=== PATIENT | male | born 1935 | race Caucasian/White ===

== ENCOUNTER 2023-10-22 19:31 | Inpatient (IN) | payer MEDICARE, OTHER, SELFPAY ==
--- NOTE | ~2023-10-22 | CT_ITS ---
EXAMINATION: CT abdomen pelvis wo con DATE: 10/22/2023 21:53 INDICATION: generalized abdominal pain TECHNIQUE: Computed tomography (CT) of the abdomen and pelvis was performed without intravenous contr ast. Automated exposure control and iterative reconstruction technique were employed. The dose-length product was 260.19 mGy-cm. COMPARISON: None. FINDINGS: Exam limited by motion artifact, particularly in the upper abdomen, and noncontrast technique. Lower thorax: Small left lower lobe air cyst. 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 Right bas ilar scar/atelectasis. Aortic valve and coronary artery calcification. Liver: Normal. Biliary/Gallbladder: Gallbladder is absent. No bile duct dilation. Pancreas: Pancreatic atrophy Spleen: Normal. Adrenals:No mass. Kidneys: No suspicious mass, obstructing stone, or hydronephrosis. GI tract: Mildly dilated ascending and transverse colon, without a specific transition point. The col on is fluid-filled. No small dilation. Normal appendix. Diverticulosis without diverticulitis. Mesentery/Peritoneum: No ascites, mass, or free air. Retroperitoneum: No mass. Atherosclerotic abdominal aortic and/or arterial calcifications. Pelvis: Pelvic organs are within normal limits. Soft Tissues: Soft tissues and body wall unremarkable. Bones: No acute osseous finding. IMPRESSION: Fluid-filled colon as can be seen with diarrheal illness. Dilated proximal large bowel, without point, may reflect chronic dilation or ileus. Early/partial obs truction not excluded. Reviewed, dictated and finalized at location K. USION OPERATOR IMPRESSION: Fluid-filled colon as can be seen with diarrheal illness. Dilated proximal large bowel, without point, may reflect chronic dilation or il eus. Early/partial obstruction not excluded.
--- NOTE | ~2023-10-22 | XR_ITS ---
EXAMINATION: XR abdomen/kub 1V INDICATION: Ileus TECHNIQUE: Supine view of the abdomen is obtained. COMPARISON: CT from yesterday FINDINGS: There is moderate volume of gas in the colon without focal colonic distention. No free intr aperitoneal gas is identified. There is severe lumbar spondylosis. IMPRESSION: 1. Nonobstructive bowel gas pattern. Reviewed, dictated and finalized at location A. CREW SUPPORT WORKER
[2023-10-22 19:32] VITALS: BP 132/78; PULSE 80; RESP 20; TEMP 36.7; O2SAT 100
[2023-10-22 19:39] VITALS: BP 132/78; PULSE 81; RESP 20; TEMP 36.7; O2SAT 100
[2023-10-22] MEDS: SODIUM CHLORIDE 0.9% IV 1,000 ML 999 ML IV CONT (20:14)
[2023-10-22] MEDS: ONDANSETRON INJ 4 MG/2 ML VIAL IV PUSH (20:15)
[2023-10-22 20:26] LABS: Basophils Absolute Auto 0.1 K/mm3 (0.0-0.1); Basophils Percent Auto 0.7 % (0.2-1.2); Eosinophils Absolute Auto 0.2 K/mm3 (0-0.3); Eosinophils Percent Auto 2.8 % (0-4.4); Hematocrit 40.7 % (42.0-52.0); Hemoglobin 13.1 g/dL (14.0-18.0); Immature Granulocyte Absolute 0.02 K/mm3 (0.00-0.031); Immature Granulocyte Percent A 0.2 % (0-0.5); Lymphocytes Absolute Auto 2.22 K/mm3 (0.9-3.2); Lymphocytes Percent Auto 25.7 % (18.3-44.2); Mean Corpuscular HGB Conc 32.2 g/dl (32-36); Mean Corpuscular Hemoglobin 29.2 pg (26-34); Mean Corpuscular Volume 90.8 fl (80-100); Monocytes Absolute Auto 0.7 K/mm3 (0.1-0.6); Monocytes Percent Auto 7.6 % (2.6-8.5); Neutrophils Absolute Auto 5.4 K/mm3 (1.3-6.7); Platelet Count Result 269 k/mm3 (150-375); Red Blood Count 4.48 M/mm3 (4.6-6.20); Red Cell Distribution Width 12.7 % (11.5-14.5); White Blood Count 8.6 K/mm3 (4.5-10.0)
[2023-10-22 20:36] LABS: Lactic Acid Reflex 2.1 mmol/L (0.7-2.0)
[2023-10-22 20:37] LABS: Alanine Aminotransferase 29 U/L (6-50); Albumin Level 4.3 g/dL (3.5-5.1); Alkaline Phosphatase 60 U/L (38-126); Anion Gap 8 mmol/L (8-16); Aspartate Amino Transferase 29 U/L (17-59); Bilirubin,Total 0.7 mg/dL (0.2-1.3); Blood Urea Nitrogen 38 mg/dL (9-20); Carbon Dioxide 28 mmol/L (22-30); Chloride 102 mmol/L (98-107); Estimated CRCL calculation 32 ml/min; Estimated Glomerular Filt Rate > 60; Glucose 270 mg/dL (65-110); Lipase 79 U/L (23-300); Potassium 3.9 mmol/L (3.4-5.0); Sodium 138 mmol/L (137-145)
[2023-10-22 20:46] LABS: INR 1.1; Partial Thromboplastin Time 27.8 SECONDS (22.3-36.8); Prothrombin Time 14.7 Seconds (11.1-14.7)
--- NOTE | 2023-10-22 20:47 | ED.GENADULT ---
HPI - General Adult General Chief complaint: Abdominal Pain Stated complaint: ABDOMINAL PAIN, N/V, DECREASED PO INTAKE Time Seen by Provider: 10/22/23 19:43 History of Present Illness HPI narrative: patient is a 88-year-old gentleman who presents emergency department with chief complaint of abdominal pain. Patient reports that he has been having constipation for the last several days had some nausea and vomiting and reports that he has pain and fullness in his lower quadrants of his abdomen. The patient denies fever reports that he has had several surgeries on his abdomen in the past Related Data Allergies Allergy/AdvReac Type Severity Reaction Status Date / Time ezetimibe [From Zetia] Allergy Unknown Verified 10/22/23 19:49 Pwyagdy-UBI-OjJ Reductase Allergy Unknown Verified 10/22/23 19:49 Inhibitor Review of Systems Review of Systems: A 10 system review of systems was completed on the patient and is negative except for what is stated in the HPI. Nursing and ancillary documentation was reviewed. [facility] Social History Social History Alcohol intake: never Exam Narrative: GENERAL: Well-appearing, well-nourished, and in no acute distress. HEAD: Normocephalic, atraumatic. EYES: PERRLA and EOMI. ENT: Nares clear, no rhinorrhea or epistaxis. Mucous membranes moist. NECK: Supple. CHEST: Clear to auscultation. No respiratory distress. HEART: Regular rate and rhythm. No murmur heard. Normal peripheral pulses. ABDOMEN: Soft, tenderness to palpation in the lower quadrants the abdomen, nondistended, normal active bowel sounds. EXTREMITIES: Normal range of motion. No edema. SKIN: Warm, dry, no rash. NEURO: No focal deficits. Alert and oriented x3. PSYCH: Normal mood and affect. Course Vital Signs Vital signs: Vital Signs Temperature 36.7 C 10/22/23 19:32 Pulse Rate 80 10/22/23 19:32 Respiratory Rate 20 10/22/23 19:32 Blood Pressure 132/78 10/22/23 19:32 Pulse Oximetry 100 10/22/23 19:32 Oxygen Delivery Room Air 10/22/23 19:32 Temperature 36.7 C 10/22/23 19:39 Pulse Rate 81 10/22/23 19:39 Respiratory Rate 20 10/22/23 19:39 Blood Pressure 132/78 10/22/23 19:39 Pulse Oximetry 100 10/22/23 19:39 Oxygen Delivery Room Air 10/22/23 19:32 Medical Decision Making MDM Narrative Medical decision making narrative: differential diagnosis includes small-bowel obstruction, colitis, diverticulitis, partial small bowel obstruction, ileus laboratory studies were obtained showed a normal CBC CMP was within normal limits lactate was slightly elevated 2.1 CT scan of the abdomen pelvis showed:Fluid-filled colon as can be seen with diarrheal illness. Dilated proximal large bowel, without point, may reflect chronic dilation or ileus. Early/partial obstruction not excluded. Vital Signs Vital Signs: Vital Signs Temperature 36.7 C 10/22/23 19:32 Pulse Rate 80 10/22/23 19:32 Respiratory Rate 20 10/22/23 19:32 Blood Pressure 132/78 10/22/23 19:32 Pulse Oximetry 100 10/22/23 19:32 Oxygen Delivery Room Air 10/22/23 19:32 Temperature 36.7 C 10/22/23 19:39 Pulse Rate 81 10/22/23 19:39 Respiratory Rate 20 10/22/23 19:39 Blood Pressure 132/78 10/22/23 19:39 Pulse Oximetry 100 10/22/23 19:39 Oxygen Delivery Room Air 10/22/23 19:32 Lab Data 10/22/23 20:21 10/22/23 20:21 Labs: Lab Results 10/22/23 Range/Units 20:21 WBC 8.6 (4.5-10.0) K/mm3 RBC 4.48 L (4.6-6.20) M/mm3 Hgb 13.1 L (14.0-18.0) g/dL Hct 40.7 L (42.0-52.0) % MCV 90.8 (80-100) fl MCH 29.2 (26-34) pg MCHC 32.2 (32-36) g/dl RDW 12.7 (11.5-14.5) % Plt Count 269 (150-375) k/mm3 MPV 11.0 H (7.4-10.4) fl Immature Gran % (Auto) 0.2 (0-0.5) % Neut % (Auto) 63.0 (45.5-73.1) % Lymph % (Auto) 25.7 (18.3-44.2) % [place] % (Auto) 7.6 (2.6
[2023-10-22 23:23] LABS: Reflex Lactic Acid Yes or No Add Lactic
[2023-10-23 01:46] LABS: Lactic Acid 1.3 mmol/L (0.7-2.0)
--- NOTE | 2023-10-23 02:19 | PC.NURSE ---
This patient, Daquan Foley, was admitted to 3 [facility] Surg Room 324-02. Patient/family oriented to hospital policies and general routines including ID bracelet, bed and alarms, visiting hours, pain management, procedures, bathroom and other care routines, personal items, smoking policy, room service/diet, and visiting hours. Information on how to activate the Rapid Response Team has been discussed. Patient/Family are encouraged to report perceived risks to care and to ask questions if they do not understand what they are told or what they should do.
[2023-10-23 02:22] VITALS: BP 119/68; PULSE 66; RESP 18; TEMP 35.8; O2SAT 100
[2023-10-23 02:36] VITALS: BMI 14.0
--- NOTE | 2023-10-23 02:47 | PC.NURSE ---
Brooks Quiñones [facility] [phone]
--- NOTE | 2023-10-23 03:34 | PC.NURSE ---
informed DO Hopen that patient daughter is requesting sleep aide for patient, patient does not take sleep aide at [facility].
[2023-10-23] MEDS: SODIUM CHLORIDE 0.9% IV 1,000 ML 125 ML IV CONT ×2 (03:56→12:09)
--- NOTE | 2023-10-23 05:48 | PC.NURSE ---
patient daughter requested on AM vitals to promote sleep for patient
--- NOTE | 2023-10-23 06:08 | PM.IMHP ---
H&P: HPI History of Present Illness Date/Time: 10/23/23 04:30 Chief Complaint: Nausea, vomiting, abdominal pain and constipation. Narrative: 88-year-old male with a past medical history of dementia, chronic hearing loss, irritable bowel syndrome, cholecystectomy and diabetes who presented to the ER from [facility] due to abdominal pain nausea vomiting. The patient has been constipated for about a week. The daughter attributes this in part due to the patient having very little appetite and stating that he does not like the food at the [facility]. Patient has had progressive weight for a few years but more acute weight loss over the last couple of months. He had been complaining of generalized abdominal pain. He has difficulty telling me severity is obtaining the history is limited due to patient's hearing loss and dementia. I had trouble obtaining orientation questions due to the patient's hearing. She reports that is not uncommon for the patient to have episodes of constipation and hard stools followed by diarrhea in rotational pattern. They brought the patient and this evening when he began having several episodes of vomiting. Reportedly emesis was nonbilious and non bloody. Patient's daughter reports that since the patient had movements home in February and then transition the fpc in April he has had a steady decline. She reports that he usually has difficulty with short-term memory issues but can not remember distant history. He has been slowly losing weight over the last several years but has had marked increase in weight loss over the last several months. She has noticed a loss in interest and activities of living. He does not like to participate in events at the fpc she thinks this is due to his hearing loss. He and his he most their meals in the room. He has become more isolated. The patient does not eat much. Patient will occasionally drink some Ensure. Most of the patient's history was obtained from the daughter's/POA report. No past medical records available for review home medication external reconciliation was reviewed from pharmacy. Review of Systems Review of Systems: Review of systems limited due to patient's hearing loss and dementia. [facility] Past Medical History Medical History (Updated 10/23/23 @ 06:54 by Shanel Nettles DO) Allergic rhinitis Dementia Depression Irritable bowel syndrome Presbycusis of both ears Type 2 diabetes mellitus Surgical History Surgical History (Updated 10/23/23 @ 06:22 by Shanel Nettles DO) History of laparoscopic cholecystectomy Social History Social History (Updated 10/23/23 @ 06:38 by Shanel Nettles DO) Social History: The patient is moved to [facility] in April 2023. He worked for the [employer] prior to retiring. The patient used to smoke a pipe. He then transition to chewing tobacco and uses about a can a day. He used to occasionally drink a beverage but only in moderation and has not done so in many years. He and his had a son and a daughter. Her daughter is the healthcare power of motor pool clerk. Code status is DNR/DNI. Smoking status: Former smoker Tobacco type: pipe Smokeless tobacco user: chewing tobacco Alcohol intake: never Substance use: never Substance use type: does not use Spiritual care concerns: No Meds Home Medications and Allergies Home Medications Medication Instructions Recorded Confirmed Type acetaminophen 325 mg tablet 325 mg PO Q4H PRN Mild Pain (Scale 10/23/23 10/23/23 History (Tylenol) Score 1-4) albuterol sulfate 90 mcg/actuation 2 puff inhalation PRN PRN 10/23/23 10/23/23 History aerosol inhaler Shortness Of Breath Or Wheezing docusate sodium 100 mg capsule 100 mg PO BID 10/23/23 10/23/23 History (Colace) fluticasone propionate 50 2 spray intranasal BID 10/23/23 10/23/23 History mcg/actuation nasal
[2023-10-23 07:51] LABS: Glucose Point of Care 113 mg/dl (65-105)
[2023-10-23] MEDS: metFORMIN HCL 500 MG TABLET PO (08:22)
[2023-10-23] MEDS: DOCUSATE SODIUM 100 MG CAPSULE PO ×2 (08:22→20:14)
[2023-10-23] MEDS: glipiZIDE 5 MG TABLET PO (08:22)
[2023-10-23] MEDS: FLUTICASONE PROPIONATE 0.05% NA SPR 16 GM BTL (*BKC) 2 SPRAY NASAL ×2 (08:23→20:25)
[2023-10-23] MEDS: IPRATROPIUM NASAL SPRAY 0.06% 15 ML BOTTLE 2 SPRAY NASAL ×2 (08:23→20:24)
[2023-10-23 08:51] LABS: Basophils Absolute Auto 0.1 K/mm3 (0.0-0.1); Basophils Percent Auto 0.8 % (0.2-1.2); Eosinophils Absolute Auto 0.5 K/mm3 (0-0.3); Eosinophils Percent Auto 5.8 % (0-4.4); Hematocrit 38.1 % (42.0-52.0); Hemoglobin 11.9 g/dL (14.0-18.0); Immature Granulocyte Absolute 0.05 K/mm3 (0.00-0.031); Immature Granulocyte Percent A 0.6 % (0-0.5); Lymphocytes Absolute Auto 2.81 K/mm3 (0.9-3.2); Lymphocytes Percent Auto 32.6 % (18.3-44.2); Mean Corpuscular HGB Conc 31.2 g/dl (32-36); Mean Corpuscular Volume 92.7 fl (80-100); Mean Platelet Volume 10.8 fl (7.4-10.4); Monocytes Absolute Auto 0.7 K/mm3 (0.1-0.6); Monocytes Percent Auto 8.2 % (2.6-8.5); Neutrophils Absolute Auto 4.5 K/mm3 (1.3-6.7); Platelet Count Result 242 k/mm3 (150-375); Red Blood Count 4.11 M/mm3 (4.6-6.20); Red Cell Distribution Width 12.8 % (11.5-14.5); White Blood Count 8.6 K/mm3 (4.5-10.0)
[2023-10-23 09:02] LABS: Anion Gap 4 mmol/L (8-16); Blood Urea Nitrogen 31 mg/dL (9-20); Calcium 9.1 mg/dL (8.4-10.2); Carbon Dioxide 29 mmol/L (22-30); Chloride 105 mmol/L (98-107); Estimated CRCL calculation 35 ml/min; Estimated Glomerular Filt Rate > 60; Glucose 115 mg/dL (65-110); Potassium 3.5 mmol/L (3.4-5.0); Sodium 138 mmol/L (137-145)
[2023-10-23 10:17] LABS: Appearance Urine Clear (Clear); Bacteria Urine None Seen /hpf; Bilirubin Urine Negative (Negative); Blood Urine 2+ (Negative); Color Urine Dark Yellow (Yellow); Glucose Urine UA 1+ mg/dL (Negative); Ketones Urine Trace mg/dL (Negative); Leukocyte Esterase Ur Negative LEU/UL (Negative); Nitrate Urine Negative (Negative); Non Pathogenic Casts 0-2; Protein Urine 1+ mg/dL (Negative); RBC Urine 21-50 /hpf (0-2); Squamous Epithelial Cell Urine None seen /hpf (Few); Urobilinogen Urine 0.2 mg/dL (<2.0)
[2023-10-23 10:18] LABS: Add Urine Microscopic? YES
[2023-10-23 11:53] LABS: Glucose Point of Care 84 mg/dl (65-105)
[2023-10-23 13:51] VITALS: BP 132/66; PULSE 60; RESP 18; TEMP 36.7; O2SAT 100
--- NOTE | 2023-10-23 15:42 | PM.IMPN ---
Progress Note: A&P Assessment and Plan (1) Type 2 diabetes mellitus: Qualifiers: Diabetes mellitus senior living insulin use: without local intermodal truck driver use Diabetes mellitus complication status: with hyperglycemia Qualified Code(s): E11.65 - Type 2 diabetes mellitus with hyperglycemia Code(s): E11.9 - Type 2 diabetes mellitus without complications Status: Acute Assessment and Plan: -chronic on insulin -continue hypoglycemic protocol -continue home insulin -hold home medication glipizide, and metformin -continue bedside glucose management (2) Ileus: Code(s): K56.7 - Ileus, unspecified Status: Acute Assessment and Plan: -as evidenced by scan patient likely with partial small-bowel obstruction (3) Abdominal pain: Qualifiers: Abdominal location: generalized Qualified Code(s): R10.84 - Generalized abdominal pain Code(s): R10.9 - Unspecified abdominal pain Status: Acute Assessment and Plan: -KUB reveals nonobstructive bowel gas pattern -continue clear liquid diet (4) Nausea & vomiting: Qualifiers: Vomiting type: unspecified Qualified Code(s): R11.2 - Nausea with vomiting, unspecified Code(s): R11.2 - Nausea with vomiting, unspecified Status: Resolved Assessment and Plan: -he denies any nausea vomiting at this time (5) Severe protein-calorie malnutrition: Code(s): E43 - Unspecified severe protein-calorie malnutrition Status: Acute Assessment and Plan: -abdominal exam reveals concave chest, which demonstrates a remarkable amount weight loss -due to concern for ileus will advance patient to clear liquid diet he denies any nausea vomiting at this time -suspect failure to thrive (6) Urinary retention: Code(s): R33.9 - Retention of urine, unspecified Status: Acute Assessment and Plan: -bladder scan Q 3-4 hours, record results -strict I&O, record I&O -plan to remove Wallace overnight then voiding trail Plan home medications: Hold metformin, glipizide VTE Prophylaxis: SCDs DIET: Clear liquid diet Anticipated hospital stay: > 2 days Code Status: Do not resuscitate Subjective Date/time seen: 10/23/23 15:42 Interval history: Chief Complaint: Nausea, vomiting, abdominal pain and constipation. Narrative: 88-year-old male with a past medical history of dementia, chronic hearing loss, irritable bowel syndrome, cholecystectomy and diabetes who presented to the ER from [facility] due to abdominal pain nausea vomiting.? Pt not able to provide reliable hx at the time of my visit History is obtained through chart/nursing staff: Pre Chart Review Reports indicate patient had been constipated for about a week.? The daughter attributes this in part due to the patient having very little appetite and stating that he does not like the food at the custodial.? Patient has had progressive weight for a few years but more acute weight loss over the last couple of months.? He had been complaining of generalized abdominal pain.? There was difficulty obtaining the history due to patient's hearing loss and dementia.? I had trouble obtaining orientation questions due to the patient's hearing. ? She reports that is not uncommon for the patient to have episodes of constipation and hard stools followed by diarrhea in rotational pattern.? They brought the patient and this evening when he began having several episodes of vomiting.? Reportedly emesis was nonbilious and non bloody.? Patient's daughter reports that since the patient had movements home in February and then transition the custodial in April he has had a steady decline.? She reports that he usually has difficulty with short-term memory issues but can not remember distant history.? He has been slowly losing weight over the last several years but has had marked increase in weight loss over the last several months.? She has noticed a loss in
[2023-10-23 16:35] LABS: Glucose Point of Care 251 mg/dl (65-105)
[2023-10-23 20:00] VITALS: PULSE 58; RESP 16; O2SAT 99
[2023-10-23] MEDS: ACETAMINOPHEN 325 MG TABLET PO (20:14)
[2023-10-23] MEDS: MELATONIN 3 MG TABLET PO (20:18)
[2023-10-23 20:50] VITALS: BP 114/49; PULSE 58; RESP 16; TEMP 36.4; O2SAT 99
[2023-10-23 21:55] LABS: Glucose Point of Care 124 mg/dl (65-105)
[2023-10-24] MEDS: OLANZapine 10 MG INJ VIAL 5 MG IM (03:26)
[2023-10-24] MEDS: SODIUM CHLORIDE 0.9% IV 1,000 ML 125 ML IV CONT ×3 (03:32→20:56)
[2023-10-24] MEDS: WATER, STERILE FOR INJECTION 10 ML VIAL XX (03:32)
[2023-10-24 04:48] VITALS: BP 119/85; PULSE 67; RESP 18; TEMP 36.2; O2SAT 99
[2023-10-24 08:00] VITALS: O2SAT 99
[2023-10-24 08:21] LABS: Glucose Point of Care 88 mg/dl (65-105)
[2023-10-24] MEDS: FLUTICASONE PROPIONATE 0.05% NA SPR 16 GM BTL (*BKC) 2 SPRAY NASAL (09:35)
[2023-10-24] MEDS: IPRATROPIUM NASAL SPRAY 0.06% 15 ML BOTTLE 2 SPRAY NASAL (09:36)
[2023-10-24] MEDS: DOCUSATE SODIUM 100 MG CAPSULE PO ×2 (09:36→20:56)
[2023-10-24 10:46] LABS: Basophils Absolute Auto 0.1 K/mm3 (0.0-0.1); Basophils Percent Auto 0.6 % (0.2-1.2); Eosinophils Absolute Auto 0.6 K/mm3 (0-0.3); Eosinophils Percent Auto 6.3 % (0-4.4); Hematocrit 35.2 % (42.0-52.0); Hemoglobin 11.2 g/dL (14.0-18.0); Immature Granulocyte Absolute 0.02 K/mm3 (0.00-0.031); Immature Granulocyte Percent A 0.2 % (0-0.5); Lymphocytes Absolute Auto 2.47 K/mm3 (0.9-3.2); Lymphocytes Percent Auto 28.2 % (18.3-44.2); Mean Corpuscular HGB Conc 31.8 g/dl (32-36); Mean Corpuscular Hemoglobin 29.6 pg (26-34); Mean Corpuscular Volume 92.9 fl (80-100); Mean Platelet Volume 10.5 fl (7.4-10.4); Monocytes Absolute Auto 0.6 K/mm3 (0.1-0.6); Monocytes Percent Auto 6.7 % (2.6-8.5); Neutrophils Absolute Auto 5.1 K/mm3 (1.3-6.7); Platelet Count Result 216 k/mm3 (150-375); Red Blood Count 3.79 M/mm3 (4.6-6.20); Red Cell Distribution Width 12.8 % (11.5-14.5); White Blood Count 8.8 K/mm3 (4.5-10.0)
[2023-10-24 11:04] LABS: Alanine Aminotransferase 19 U/L (6-50); Albumin Level 3.5 g/dL (3.5-5.1); Alkaline Phosphatase 59 U/L (38-126); Anion Gap 5 mmol/L (8-16); Aspartate Amino Transferase 21 U/L (17-59); Bilirubin,Total 0.8 mg/dL (0.2-1.3); Blood Urea Nitrogen 17 mg/dL (9-20); Calcium 8.5 mg/dL (8.4-10.2); Carbon Dioxide 27 mmol/L (22-30); Chloride 107 mmol/L (98-107); Estimated CRCL calculation 44 ml/min; Estimated Glomerular Filt Rate > 60; Glucose 128 mg/dL (65-110); Potassium 3.3 mmol/L (3.4-5.0); Sodium 139 mmol/L (137-145)
--- NOTE | 2023-10-24 11:25 | PC.NURSE ---
PATRICIA JERNIGAN LITIGATION ASSOCIATE NOTIFIED OF BLADDER SCAN 500
[2023-10-24 11:48] LABS: Glucose Point of Care 123 mg/dl (65-105)
[2023-10-24 13:34] VITALS: BMI 14.0
[2023-10-24 15:16] VITALS: BP 136/72; PULSE 68; RESP 18; TEMP 36.6; O2SAT 100
[2023-10-24 17:43] LABS: Glucose Point of Care 127 mg/dl (65-105)
[2023-10-24] MEDS: OLANZapine 5 MG, WATER, STERILE FOR INJECTION 2.1 ML IM (18:41)
--- NOTE | 2023-10-24 18:59 | PM.IMPN ---
Progress Note: A&P Assessment and Plan (1) Type 2 diabetes mellitus: Qualifiers: Diabetes mellitus correction insulin use: without correction use Diabetes mellitus complication status: with hyperglycemia Qualified Code(s): E11.65 - Type 2 diabetes mellitus with hyperglycemia Code(s): E11.9 - Type 2 diabetes mellitus without complications Status: Acute Assessment and Plan: -chronic on insulin -continue hypoglycemic protocol -continue home insulin -hold home medication glipizide, and metformin -continue bedside glucose management (2) Ileus: Code(s): K56.7 - Ileus, unspecified Status: Acute Assessment and Plan: -as evidenced by scan patient likely with partial small-bowel obstruction (3) Abdominal pain: Qualifiers: Abdominal location: generalized Qualified Code(s): R10.84 - Generalized abdominal pain Code(s): R10.9 - Unspecified abdominal pain Status: Acute Assessment and Plan: -KUB reveals nonobstructive bowel gas pattern -continue clear liquid diet (4) Nausea & vomiting: Qualifiers: Vomiting type: unspecified Qualified Code(s): R11.2 - Nausea with vomiting, unspecified Code(s): R11.2 - Nausea with vomiting, unspecified Status: Resolved Assessment and Plan: -he denies any nausea vomiting at this time (5) Severe protein-calorie malnutrition: Code(s): E43 - Unspecified severe protein-calorie malnutrition Status: Acute Assessment and Plan: -abdominal exam reveals concave chest, which demonstrates a remarkable amount weight loss -due to concern for ileus will advance patient to clear liquid diet he denies any nausea vomiting at this time -suspect failure to thrive (6) Urinary retention: Code(s): R33.9 - Retention of urine, unspecified Status: Acute Assessment and Plan: -bladder scan Q 3-4 hours, record results -strict I&O, record I&O -Wallace removed voiding trial reveals > 400 bladder distension -reinsert Wallace catheter (7) Dementia with behavioral disturbance: Code(s): F03.918 - Unspecified dementia, unspecified severity, with other behavioral disturbance Status: Acute Assessment and Plan: -RN reports patient having episodes of confusion pulling on medical equipment, trying to get out of bed -initiate sitter by the bedside -use Zyprexa 5 mg IM once Plan home medications: Hold metformin, glipizide VTE Prophylaxis: SCDs DIET: Clear liquid diet Anticipated hospital stay: > 2 days Code Status: Do not resuscitate Subjective Date/time seen: 10/24/23 1015 Interval history: Chief Complaint: Nausea, vomiting, abdominal pain and constipation. Narrative: 88-year-old male with a past medical history of dementia, chronic hearing loss, irritable bowel syndrome, cholecystectomy and diabetes who presented to the ER from [facility] due to abdominal pain nausea vomiting.? Pt not able to provide reliable hx at the time of my visit History is obtained through chart/nursing staff:? Pre Chart Review Reports indicate patient had been constipated for about a week.? The daughter attributes this in part due to the patient having very little appetite and stating that he does not like the food at the residential.? Patient has had progressive weight for a few years but more acute weight loss over the last couple of months.? He had been complaining of generalized abdominal pain.? There was difficulty obtaining the history due to patient's hearing loss and dementia.? I had trouble obtaining orientation questions due to the patient's hearing. ? She reports that is not uncommon for the patient to have episodes of constipation and hard stools followed by diarrhea in rotational pattern.? They brought the patient and this evening when he began having several episodes of vomiting.? Reportedly emesis was nonbilious and non bloody.? Patient's daughter reports that
[2023-10-24] MEDS: MELATONIN 3 MG TABLET PO (20:56)
[2023-10-24 21:44] LABS: Glucose Point of Care 121 mg/dl (65-105)
[2023-10-24 22:00] VITALS: BP 133/66; PULSE 74; RESP 18; TEMP 36.7; O2SAT 98
[2023-10-25] MEDS: polyethylene glycoL 3350 17 GM POWD.PACK PO (03:13)
[2023-10-25] MEDS: QUEtiapine FUMARATE 25 MG TABLET PO (03:13)
[2023-10-25] MEDS: SODIUM CHLORIDE 0.9% IV 1,000 ML 125 ML IV CONT ×2 (03:14→11:57)
[2023-10-25] MEDS: OLANZapine 2.5 MG TABLET PO (06:01)
[2023-10-25 06:25] VITALS: BP 163/67; PULSE 76; RESP 20; TEMP 37.7; O2SAT 100
[2023-10-25 06:35] LABS: Basophils Absolute Auto 0.1 K/mm3 (0.0-0.1); Basophils Percent Auto 0.8 % (0.2-1.2); Eosinophils Absolute Auto 0.7 K/mm3 (0-0.3); Eosinophils Percent Auto 6.3 % (0-4.4); Hematocrit 37.5 % (42.0-52.0); Hemoglobin 12.1 g/dL (14.0-18.0); Immature Granulocyte Absolute 0.03 K/mm3 (0.00-0.031); Immature Granulocyte Percent A 0.3 % (0-0.5); Lymphocytes Absolute Auto 2.92 K/mm3 (0.9-3.2); Lymphocytes Percent Auto 26.7 % (18.3-44.2); Mean Corpuscular HGB Conc 32.3 g/dl (32-36); Mean Corpuscular Hemoglobin 29.5 pg (26-34); Mean Corpuscular Volume 91.5 fl (80-100); Mean Platelet Volume 10.8 fl (7.4-10.4); Monocytes Absolute Auto 0.8 K/mm3 (0.1-0.6); Monocytes Percent Auto 7.5 % (2.6-8.5); Neutrophils Absolute Auto 6.4 K/mm3 (1.3-6.7); Neutrophils Percent Auto 58.4 % (45.5-73.1); Platelet Count Result 223 k/mm3 (150-375); Red Cell Distribution Width 12.5 % (11.5-14.5); White Blood Count 10.9 K/mm3 (4.5-10.0)
[2023-10-25 06:48] LABS: Alanine Aminotransferase 21 U/L (6-50); Albumin Level 3.8 g/dL (3.5-5.1); Alkaline Phosphatase 76 U/L (38-126); Anion Gap 6 mmol/L (8-16); Aspartate Amino Transferase 32 U/L (17-59); Bilirubin,Total 1.3 mg/dL (0.2-1.3); Blood Urea Nitrogen 9 mg/dL (9-20); Calcium 8.8 mg/dL (8.4-10.2); Carbon Dioxide 28 mmol/L (22-30); Chloride 106 mmol/L (98-107); Estimated CRCL calculation 44 ml/min; Estimated Glomerular Filt Rate > 60; Glucose 113 mg/dL (65-110); Potassium 3.3 mmol/L (3.4-5.0); Sodium 140 mmol/L (137-145)
[2023-10-25 07:49] LABS: Glucose Point of Care 108 mg/dl (65-105)
[2023-10-25 11:10] LABS: Glucose Point of Care 85 mg/dl (65-105)
--- NOTE | 2023-10-25 13:39 | PM.IMPN ---
Progress Note: A&P Assessment and Plan (1) Type 2 diabetes mellitus: Qualifiers: Diabetes mellitus complication status: with hyperglycemia Diabetes mellitus terminal make up operator insulin use: without correction use Qualified Code(s): E11.65 - Type 2 diabetes mellitus with hyperglycemia Code(s): E11.9 - Type 2 diabetes mellitus without complications Status: Acute Assessment and Plan: -chronic on insulin -continue hypoglycemic protocol -continue home insulin -hold home medication glipizide, and metformin -continue bedside glucose management (2) Ileus: Code(s): K56.7 - Ileus, unspecified Status: Acute Assessment and Plan: -as evidenced by scan patient likely with partial small-bowel obstruction (3) Abdominal pain: Qualifiers: Abdominal location: generalized Qualified Code(s): R10.84 - Generalized abdominal pain Code(s): R10.9 - Unspecified abdominal pain Status: Acute Assessment and Plan: -KUB reveals nonobstructive bowel gas pattern -continue clear liquid diet (4) Nausea & vomiting: Qualifiers: Vomiting type: unspecified Qualified Code(s): R11.2 - Nausea with vomiting, unspecified Code(s): R11.2 - Nausea with vomiting, unspecified Status: Resolved Assessment and Plan: -he denies any nausea vomiting at this time (5) Severe protein-calorie malnutrition: Code(s): E43 - Unspecified severe protein-calorie malnutrition Status: Acute Assessment and Plan: -abdominal exam reveals concave chest, which demonstrates a remarkable amount weight loss -due to concern for ileus will advance patient to clear liquid diet he denies any nausea vomiting at this time -suspect failure to thrive (6) Urinary retention: Code(s): R33.9 - Retention of urine, unspecified Status: Acute Assessment and Plan: -strict I&O, record I&O -reinsert Wallace catheter -continue Wallace catheter care q.4 hours (7) Dementia with behavioral disturbance: Code(s): F03.918 - Unspecified dementia, unspecified severity, with other behavioral disturbance Status: Acute Assessment and Plan: -RN reports patient having episodes of confusion pulling on medical equipment, trying to get out of bed -continue sitter by the bedside -use Zyprexa 5 mg IM q.8 hrs PRN for agitation -continue home medications Seroquel p.o. Plan home medications: Hold metformin, glipizide VTE Prophylaxis: SCDs DIET: Clear liquid diet Anticipated hospital stay: > 2 days Code Status: Do not resuscitate Subjective Date/time seen: 10/25/23 13:39 Interval history: Chief Complaint: Nausea, vomiting, abdominal pain and constipation. Narrative: 88-year-old male with a past medical history of dementia, chronic hearing loss, irritable bowel syndrome, cholecystectomy and diabetes who presented to the ER from [facility] due to abdominal pain nausea vomiting.? Pt not able to provide reliable hx at the time of my visit History is obtained through chart/nursing staff:? Pre Chart Review Reports indicate patient had been constipated for about a week.? The daughter attributes this in part due to the patient having very little appetite and stating that he does not like the food at the senior care.? Patient has had progressive weight for a few years but more acute weight loss over the last couple of months.? He had been complaining of generalized abdominal pain.? There was difficulty obtaining the history due to patient's hearing loss and dementia.? I had trouble obtaining orientation questions due to the patient's hearing. ? She reports that is not uncommon for the patient to have episodes of constipation and hard stools followed by diarrhea in rotational pattern.? They brought the patient and this evening when he began having several episodes of vomiting.? Reportedly emesis was nonbilious and non bloody.? Patient's daughter reports shona
[2023-10-25 14:00] VITALS: BP 156/72; PULSE 76; RESP 14; TEMP 36.2; O2SAT 99
[2023-10-25] MEDS: OLANZapine 5 MG, WATER, STERILE FOR INJECTION 2.1 ML IM (14:03)
[2023-10-25] MEDS: LACTATED RINGERS 1,000 ML 100 ML IV CONT (14:08)
[2023-10-25 16:22] LABS: Glucose Point of Care 73 mg/dl (65-105)
--- NOTE | 2023-10-25 16:58 | PM.IMHP ---
H&P: HPI History of Present Illness Date/Time: 10/25/23 16:58 Chief Complaint: Uncontrolled agitation Narrative: This 88-year-old gentleman presented [facility] on October 22 with nausea vomiting and about CT of the abdomen showed dilated and fluid-filled colon consistent with partial obstruction versus ileus versus chronic February for abdominal x-ray of revealed not bowel gas pattern. After presentation in the emergency department the patient did pass multiple loose stools. However he remained agitated confused and combative. According to chart review a history of 6 months decline since admission to skilled nursing. Decreased at ability to perform ADLs. Weight loss. Constipation. He does have a chronic history of dementia and mental status is been gradually worsening as well. Because of his advanced dementia poor functional status and uncontrolled agitation his family opted for inpatient hospice service for symptom management. Review of Systems Review of Systems: ROS unobtainable: Yes unobtainable due to medical condition PMFSH Past Medical History Medical History Allergic rhinitis Dementia Depression Irritable bowel syndrome Presbycusis of both ears Type 2 diabetes mellitus Surgical History Surgical History History of laparoscopic cholecystectomy Social History Social History Social History: The patient is moved to [facility] in April 2023. He worked for the [employer] prior to retiring. The patient used to smoke a pipe. He then transition to chewing tobacco and uses about a can a day. He used to occasionally drink a beverage but only in moderation and has not done so in many years. He and his had a son and a daughter. Her daughter is the healthcare power of [employer]. Code status is DNR/DNI. Smoking status: Former smoker Tobacco type: pipe Smokeless tobacco user: chewing tobacco Alcohol intake: never Substance use: never Substance use type: does not use Spiritual care concerns: No Meds Home Medications and Allergies Home Medications Medication Instructions Recorded Confirmed Type acetaminophen 325 mg tablet 325 mg PO Q4H PRN Mild Pain (Scale 10/23/23 10/23/23 History (Tylenol) Score 1-4) albuterol sulfate 90 mcg/actuation 2 puff inhalation PRN PRN 10/23/23 10/23/23 History aerosol inhaler Shortness Of Breath Or Wheezing docusate sodium 100 mg capsule 100 mg PO BID 10/23/23 10/23/23 History (Colace) fluticasone propionate 50 2 spray intranasal BID 10/23/23 10/23/23 History mcg/actuation nasal spray,suspension glipizide 5 mg tablet 5 mg PO BID 10/23/23 10/23/23 History ipratropium bromide 42 mcg (0.06 2 spray intranasal BID 10/23/23 10/23/23 History %) nasal spray metformin 500 mg tablet 500 mg PO BID 10/23/23 10/23/23 History multivitamin 1 tablet PO DAILY 10/23/23 10/23/23 History olopatadine 0.6 % nasal spray 2 spray intranasal BID 10/23/23 10/23/23 History polyethylene glycol 3350 17 gram 17 g PO DAILY PRN Constipation 10/23/23 10/23/23 History oral powder packet (Miralax) Allergies Allergy/AdvReac Type Severity Reaction Status Date / Time ezetimibe [From Zetia] Allergy Unknown Verified 10/22/23 19:49 [id number]-[id number]-[id number] Reductase Allergy Unknown Verified 10/22/23 19:49 Inhibitor Vital Signs Vital Signs - 24 hr 10/24/23 22:00 10/25/23 06:25 10/25/23 14:00 Temperature 98.1 F 99.8 F H 97.2 F L Pulse Rate 74 76 76 Respiratory Rate 18 20 14 Blood Pressure 133/66 163/67 H 156/72 H Pulse Oximetry 98 100 99 Exam Narrative: Frail-appearing elderly gentleman lying in hospital bed vague about multiple reaching for the ceiling. Sclerae nonicteric. Oral mucosa pain. Neck no JVD. Chest clear to auscultation. Normal effort. Hea
--- NOTE | 2023-10-25 19:01 | PC.NURSE ---
This RN bladder scanned the patient, 409ml retained. This RN contacted [facility]. [facility] stated they cannot give an order for a boss or how they would like this to be handled, they will be sending a vitas nurse out to evaluate the patient.
--- NOTE | 2023-11-08 06:13 | PM.DS ---
DS: Admitting Diagnosis Discharge Date 10/25/23 Admitting Diagnosis Nausea vomiting Abdominal pain DS: Discharge Diagnosis Discharge Diagnosis (1) Dementia with behavioral disturbance: Code(s): F03.918 - Unspecified dementia, unspecified severity, with other behavioral disturbance Status: Acute Assessment and Plan: RN reports patient having episodes confusion pulling on medical equipment draining out of bed Sitter is by the bedside -continue safety/fall precautions -use Zyprexa 5 mg IM once (2) Urinary retention: Code(s): R33.9 - Retention of urine, unspecified Status: Acute Assessment and Plan: -strict I&O -Wallace removal trial reveals > 400 bladder distention -Wallace reinserted for comfort care measures (3) Severe protein-calorie malnutrition: Code(s): E43 - Unspecified severe protein-calorie malnutrition Status: Acute Assessment and Plan: -poor oral intake -dietary consult, for dietary supplements -patient is refusing meals and p.o. medication (4) Nausea & vomiting: Qualifiers: Vomiting type: unspecified Qualified Code(s): R11.2 - Nausea with vomiting, unspecified Code(s): R11.2 - Nausea with vomiting, unspecified Status: Resolved Assessment and Plan: -patient has not had any episodes of nausea vomiting since admission (5) Abdominal pain: Qualifiers: Abdominal location: generalized Qualified Code(s): R10.84 - Generalized abdominal pain Code(s): R10.9 - Unspecified abdominal pain Status: Acute Assessment and Plan: -KUB reveals nonobstructive bowel gas pattern -continue clear liquid diet Plan At this time family by the bedside has requested to discontinue any invasive treatments, they are leaning toward comfort measures. Discussion to leave the Wallace intact, and start palliative sedation. Consult property caretaker for assistance with inpatient, and family decision and planning. VTE Prophylaxis: SCDs DIET: Clear liquid diet Anticipated hospital stay: > 2 days Code Status: Family is in discussion, they have requested an opportunity to discuss a decision to change code status to DNR comfort care measures only. DS: Summary Hospital Course Reason for hospitalization: 88-year-old male with a past medical history of dementia, chronic hearing loss, irritable bowel syndrome, cholecystectomy and diabetes who presented to the ER from [facility] due to abdominal pain nausea vomiting.? Hospital Course: Chief Complaint: Nausea, vomiting, abdominal pain and constipation. Narrative: 88-year-old male with a past medical history of dementia, chronic hearing loss, irritable bowel syndrome, cholecystectomy and diabetes who presented to the ER from [facility] due to abdominal pain nausea vomiting.? The patient has been constipated for about a week.? The daughter attributes this in part due to the patient having very little appetite and stating that he does not like the food at the halfway.? Patient has had progressive weight for a few years but more acute weight loss over the last couple of months.? He had been complaining of generalized abdominal pain.? He has difficulty telling me severity is obtaining the history is limited due to patient's hearing loss and dementia.? I had trouble obtaining orientation questions due to the patient's hearing. ? She reports that is not uncommon for the patient to have episodes of constipation and hard stools followed by diarrhea in rotational pattern.? They brought the patient and this evening when he began having several episodes of vomiting.? Reportedly emesis was nonbilious and non bloody.? Patient's daughter reports that since the patient had movements home in February and then transition the halfway in April he has had a steady decline.? She reports that he usually has difficulty with short-term memory issues but can not remember distant
== END 2023-10-25 18:03 | disposition hospice, inpatient (51) | DRG 388 ==
LOC: ANHED 10-23 00:24 → ANH3MEDSUR 10-23 01:14
PROVIDERS: Admitting Provider Internal Medicine; Emergency Provider Emergency Medicine; PCP Internal Medicine; Visit Provider Nurse Practitioner
DX: E43 Unspecified severe protein-calorie malnutrition (principal); K56.7 Ileus, unspecified; F03.918 Unspecified dementia, unspecified severity, with other behavioral disturbance; Z68.1 Body mass index [BMI] 19.9 or less, adult; H91.90 Unspecified hearing loss, unspecified ear; E11.65 Type 2 diabetes mellitus with hyperglycemia; E86.0 Dehydration; F32.A Depression, unspecified; K58.9 Irritable bowel syndrome, unspecified; R33.9 Retention of urine, unspecified; Z66 Do not resuscitate; Z79.84 Long term (current) use of oral hypoglycemic drugs; Z87.891 Personal history of nicotine dependence; Z90.49 Acquired absence of other specified parts of digestive tract
CPT/HCPCS: 36415; 74018; 74176; 80048; 80053; 81001; 82948; 83605; 83690; 84443; 85025; 85610; 85730; 87086; 96361; 96372; 96374; 99285; A9270; G0378; J2359; J2405; J7030; J7120

== ENCOUNTER 2023-10-25 18:04 | HOS | payer OTHER, MEDICARE, SELFPAY ==
--- NOTE | 2023-10-25 17:00 | HP_ITS ---
This report was moved to the correct visit on 10/27/2023. The original report was signed by Ray Mijares MD on 10/25/23 [id number]. H&P: HPI History of Present Illness Date/Time: 10/25/23 16:58 Chief Complaint: Uncontrolled agitation Narrative: This 88-year-old gentleman presented [facility] on October 22 with nausea vomiting and about CT of the abdomen showed dilated and fluid-filled colon consistent with partial obstruction versus ileus versus chronic February for abdominal x-ray of revealed not bowel gas pattern. After presentation in the emergency department the patient did pass multiple loose stools. However he remained agitated confused and combative. According to chart review a history of 6 months decline since admission to group home. Decreased at ability to perform ADLs. Weight loss. Constipation. He does have a chronic history of dementia and mental status is been gradually worsening as well. Because of his advanced dementia poor functional status and uncontrolled agitation his family opted for inpatient hospice service for symptom management. Review of Systems Review of Systems: ROS unobtainable: Yes unobtainable due to medical condition PMFSH Past Medical History Medical History Allergic rhinitis Dementia Depression Irritable bowel syndrome Presbycusis of both ears Type 2 diabetes mellitus Surgical History Surgical History History of laparoscopic cholecystectomy Social History Social History Social History: The patient is moved to [facility] in April 2023. He worked for the [employer] prior to retiring. The patient used to smoke a pipe. He then transition to chewing tobacco and uses about a can a day. He used to occasionally drink a beverage but only in moderation and has not done so in many years. He and his had a son and a daughter. Her daughter is the healthcare power of [employer]. Code status is DNR/DNI. Smoking status: Former smoker Tobacco type: pipe Smokeless tobacco user: chewing tobacco Alcohol intake: never Substance use: never Substance use type: does not use Spiritual care concerns: No Meds Home Medications and Allergies Home Medications Medication Instructions Recorded Confirmed Type acetaminophen 325 mg tablet 325 mg PO Q4H PRN Mild Pain (Scale 10/23/23 10/23/23 History (Tylenol) Score 1-4) albuterol sulfate 90 mcg/actuation 2 puff inhalation PRN PRN 10/23/23 10/23/23 History aerosol inhaler Shortness Of Breath Or Wheezing docusate sodium 100 mg capsule 100 mg PO BID 10/23/23 10/23/23 History (Colace) fluticasone propionate 50 2 spray intranasal BID 10/23/23 10/23/23 History mcg/actuation nasal spray,suspension glipizide 5 mg tablet 5 mg PO BID 10/23/23 10/23/23 History ipratropium bromide 42 mcg (0.06 2 spray intranasal BID 10/23/23 10/23/23 History %) nasal spray metformin 500 mg tablet 500 mg PO BID 10/23/23 10/23/23 History multivitamin 1 tablet PO DAILY 10/23/23 10/23/23 History olopatadine 0.6 % nasal spray 2 spray intranasal BID 10/23/23 10/23/23 History polyethylene glycol 3350 17 gram 17 g PO DAILY PRN Constipation 10/23/23 10/23/23 History oral powder packet (Miralax) Allergies Allergy/AdvReac Type Severity Reaction Status Date / Time ezetimibe [From Zetia] Allergy Unknown Verified 10/22/23 19:49 [id number]-[id number] Reductase Allergy Unknown Verified 10/22
[2023-10-25 18:42] VITALS: BMI 17.2
[2023-10-25] MEDS: PHENobarbitaL sodium (*CRX) 65 MG/ML VIAL 30 MG IV PUSH (20:24)
[2023-10-25] MEDS: LORazepam INJ (*CRX) 2 MG/ML VIAL 1 MG IV PUSH (20:25)
[2023-10-26] MEDS: PHENobarbitaL sodium (*CRX) 65 MG/ML VIAL 30 MG IV PUSH ×4 (02:23→20:40)
[2023-10-26] MEDS: LORazepam INJ (*CRX) 2 MG/ML VIAL 1 MG IV PUSH ×4 (02:24→20:40)
[2023-10-26 06:55] VITALS: BP 135/63; PULSE 69; RESP 20; TEMP 36.4; O2SAT 95
[2023-10-26 08:00] VITALS: O2SAT 95
--- NOTE | 2023-10-26 12:36 | PM.IMPN ---
Progress Note: A&P Assessment and Plan (1) Palliative care encounter: Code(s): Z51.5 - Encounter for palliative care Status: Acute Assessment and Plan: Meets inpatient hospice criteria due to requiring scheduled IV medication around the clock for control of agitation. October 26 continue palliative sedation scheduled IV medications around the clock. (2) Dementia with behavioral disturbance: Code(s): F03.918 - Unspecified dementia, unspecified severity, with other behavioral disturbance Status: Acute (3) Severe protein-calorie malnutrition: Code(s): E43 - Unspecified severe protein-calorie malnutrition Status: Acute (4) Type 2 diabetes mellitus: Qualifiers: Diabetes mellitus alf insulin use: without alf use Diabetes mellitus complication status: with hyperglycemia Qualified Code(s): E11.65 - Type 2 diabetes mellitus with hyperglycemia Code(s): E11.9 - Type 2 diabetes mellitus without complications Status: Acute (5) Ileus: Code(s): K56.7 - Ileus, unspecified Status: Acute (6) Urinary retention: Code(s): R33.9 - Retention of urine, unspecified Status: Acute Subjective Date/time seen: 10/26/23 12:36 Interval history: Resting comfortably since palliative sedation initiated on October 25. No p.o. intake. Review of Systems Review of Systems: ROS unobtainable: Yes unobtainable due to medical condition Exam Narrative: Frail-appearing elderly gentleman resting comfortably in hospital bed Oral mucosa pain. Neck no JVD. Chest clear to auscultation.? Normal effort. Heart normal S1 and S2.? Rate regular.? No audible murmur. Abdomen scaphoid.? Bowel sounds hypoactive.? No palpable mass.? No obvious tenderness. Extremities no edema. Musculoskeletal without gross deformity to visual inspection. Tone symmetric. Neurologic cranial symmetric to visual inspection. Psychiatric unresponsive to verbal or tactile stimuli. Objective Data Vital Signs Vital Signs: Vital Signs - 24 hr 10/25/23 20:00 10/26/23 06:55 10/26/23 08:00 Temperature 97.5 F L Pulse Rate 69 Respiratory Rate 20 Blood Pressure 135/63 Pulse Oximetry 95 95 Oxygen Delivery Room Air Room Air Intake/Output Intake/Output: Intake & Output 10/23/23 10/24/23 10/25/23 10/26/23 23:59 23:59 23:59 23:59 Output Total 550 Balance -550 Meds/Results Medications: Active Medications Generic Name Dose Route Start Last Admin Trade Name Freq PRN Reason Stop Dose Admin Bisacodyl 10 mg 10/25/23 18:57 Bisacodyl 10 Mg Suppository RECTAL QAM PRN Constipation Glycopyrrolate 0.1 mg 10/25/23 18:53 Glycopyrrolate Inj (*Sp) 0.2 Mg/Ml Vial IV PUSH Q4H PRN SECRETIONS Haloperidol Lactate 5 mg 10/25/23 18:53 Haloperidol Lactate 5 Mg/Ml Vial IM Q6H PRN AGITATION Lorazepam 1 mg 10/25/23 18:49 Lorazepam Inj (*Crx) 2 Mg/Ml Vial IV PUSH Q2H PRN AGITATION/RESTLESSNESS Lorazepam 1 mg 10/25/23 21:00 10/26/23 08:28 Lorazepam Inj (*Crx) 2 Mg/Ml Vial IV PUSH 1 mg Q6H JUNE Administration Morphine Sulfate 2 mg 10/25/23 20:29 Morphine Sulfate (*Crx) 2 Mg/Ml Inj IV PUSH Q2H PRN PAIN/SOB Phenobarbital Sodium 30 mg 10/25/23 21:00 10/26/23 08:28 Phenobarbital Sodium (*Crx) 65 Mg/Ml Vial IV PUSH 30 mg Q6H JUNE Administration Prochlorperazine Edisylate 10 mg 10/25/23 18:56 Prochlorperazine Edisylate 10 Mg/2 Ml Vial IV PUSH Q6H PRN Nausea And Vomiting
[2023-10-26 15:22] VITALS: BP 129/57; PULSE 67; RESP 18; TEMP 36.6; O2SAT 100
[2023-10-26 22:20] VITALS: BP 137/68; PULSE 86; RESP 24; TEMP 36.4; O2SAT 95
[2023-10-27] MEDS: LORazepam INJ (*CRX) 2 MG/ML VIAL 1 MG IV PUSH ×3 (02:06→16:28)
[2023-10-27] MEDS: PHENobarbitaL sodium (*CRX) 65 MG/ML VIAL 30 MG IV PUSH ×3 (02:06→16:28)
[2023-10-27 04:20] VITALS: BP 166/72; PULSE 47; RESP 28; TEMP 36.3; O2SAT 96
--- NOTE | 2023-10-27 17:48 | P.DN_ITS ---
Discharge Summary Date and Time Date of : 10/27/23 Time of : 14:40 Provider Pronounced By: Marcia Zepeda RN, Falguni Hoskins RN Probable Cause of Probable Cause of : Dementia with behavioral disturbance Summary Hospital Course: Admitted to inpatient hospice service for management of uncontrolled. Medications were titrated to comfort. Mr. Foley peacefully. Additional Data Confirmation of as documented by pronouncing clinician: Pupillary Reflex, Palpable Pulses, Response to Stimuli, Heart Tones and Breath Sounds Name of Provider Notified: Dr. Ray Mijares Time Provider Notified: 16:49 Provider Requests Autopsy: No Director Of Medical Services Notified: Yes Date [facility] Notified of : 10/27/23 Time [facility] Notified of : 17:27
== END 2023-10-27 16:40 | disposition expired | DRG 951 ==
PROVIDERS: Admitting Provider Internal Medicine; PCP Internal Medicine; Visit Provider Internal Medicine
DX: Z51.5 Encounter for palliative care (principal); F03.918 Unspecified dementia, unspecified severity, with other behavioral disturbance; E43 Unspecified severe protein-calorie malnutrition; Z68.1 Body mass index [BMI] 19.9 or less, adult; K56.7 Ileus, unspecified; E11.65 Type 2 diabetes mellitus with hyperglycemia; R33.9 Retention of urine, unspecified; Z87.891 Personal history of nicotine dependence
CPT/HCPCS: J2060; J2560